=== PATIENT | male | born 1950 | race Caucasian/White ===

== ENCOUNTER 2020-05-08 12:02 | Emergency (ER) | payer BC, SELFPAY ==
--- NOTE | ~2020-05-08 | CT_ITS ---
EXAMINATION: CT lumbar spine wo con DATE: 05/08/2020 13:56 INDICATION: Low back pain. TECHNIQUE: Computed tomography (CT) of the lumbar spine was performed without intravenous contrast. A utomated exposure control and iterative reconstruction technique were employed. The dose-length produ ct was 760.42 mGy-cm. COMPARISON: CT abdomen and pelvis dated 12/28/2016 FINDINGS: Alignment is normal. Unchanged chronic mild vertebral body height loss at L5 and anteriorly at L4.. No fracture. Hemangioma in the left side of L4. Disc heights are normal. 1 mm nonobstructing left renal stone. Multiple diverticula are seen along the visualized portions of the descending and sigmoid colon without adjacent inflammatory change to suggest diverticulitis. Normal appendix. Reserv oir for a likely penile prosthesis in the anterior right pelvis. The following disc levels are specif ically discussed: T12-L1: The disc does not extend beyond the endplate margin. There is mild bilateral facet joint oste oarthritis. There is no neural foraminal stenosis. There is no central canal stenosis. L1-L2: Disc is mildly bulging. There is mild bilateral facet joint osteoarthritis. There is mild bila teral neural foraminal stenosis. There is no central canal stenosis. L2-L3: Disc is mildly bulging. There is mild right and moderate left facet joint osteoarthritis. Ther e is mild bilateral neural foraminal stenosis. There is mild central canal stenosis. L3-L4: Disc is bulging. There is mild right and moderate left facet joint osteoarthritis. There is mi ld bilateral neural foraminal stenosis. There is mild central canal stenosis. L4-L5: Disc is bulging. There is moderate right and mild left facet joint osteoarthritis. There is mo derate bilateral neural foraminal stenosis. There is moderate central canal stenosis. L5-S1: Disc is bulging. There is moderate right and mild left facet joint osteoarthritis. There is mi ld bilateral neural foraminal stenosis. There is no central canal stenosis. IMPRESSION: 1. Mild lumbar spondylosis. No acute osseous abnormality. Reviewed, dictated and finalized at location A. [place] [employer] SAL[employer] REPRESENTATIVE
--- NOTE | ~2020-05-08 | XR_ITS ---
EXAMINATION: XR ankle RT min 3V DATE: 05/08/2020 13:37 INDICATION: Posttraumatic right ankle pain, swelling and erythema. TECHNIQUE: Anteroposterior, oblique, mortise, and lateral views of the right ankle were obtained. COMPARISON: None. FINDINGS: Alignment is normal. No fracture. Joint spaces are well maintained. Chronic appearing irregular cont our to the neck of the talus which could represent old healed avulsion fracture or degenerative hyper trophic osteophyte. There are small heterotopic ossicles at the tips of the medial and lateral malleo li consistent with sequela of chronic medial and lateral ankle sprains. Prominent soft tissue swellin g about the lateral malleolus. No ankle joint effusion. IMPRESSION: 1. No acute osseous abnormality. Reviewed, dictated and finalized at location A. 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
[2020-05-08 12:04] VITALS: BP 150/94; PULSE 62; RESP 20; TEMP 36.6; O2SAT 98
--- NOTE | 2020-05-08 13:22 | ED.BACK ---
HPI - Back Pain/Injury General Chief Complaint: Back Pain/Injury Stated Complaint: BACK PAIN Time Seen by Provider: 05/08/20 13:10 Source: patient Mode of arrival: ambulatory Limitations: no limitations History of Present Illness HPI Narrative: This is a 69-year-old male that presents the emergency department for low back pain over the last couple of months. Reports the pain radiates down the right leg. Reports he has been seen by orthopedics for this and had steroid joint injection with some relief initially. He has also done physical therapy with little relief. He has been taking anti-inflammatories with little relief. Reports worsening pain this morning which prompted him to be seen. He does have a follow-up appointment with his orthopedic doctor in 2 days. Denies fever, saddle anesthesia, bowel/bladder incontinence, numbness, or weakness. Related Data Allergies Allergy/AdvReac Type Severity Reaction Status Date / Time vancomycin Allergy Mild Rash Verified 03/26/19 07:02 Review of Systems Review of Systems: Narrative: CONSTITUTIONAL: Denies fever SKIN: Denies rash MUSCULOSKELETAL: Reports back pain, joint pain, and myalgia. NEUROLOGIC: Denies numbness, or weakness. All systems reviewed & are unremarkable except as noted in HPI and below PMFSH Past Medical History Medical History (Updated 05/08/20 @ 15:10 by Kathy Avina PA-C) History of prostate cancer Family History Family History (Updated 09/19/16 @ 13:38 by DOCTOR UNKNOWN) Mother Cerebrovascular accident Father Family history of Alzheimer's disease Other Family history of malignant neoplasm Hypertension Social History Social History Smoking status: Never smoker Alcohol intake: current Gender identity (if verbalized by the patient): Male Exam Narrative: Exam Narrative: GENERAL: Well-appearing, well-nourished, and in no acute distress. HEAD: Normocephalic, atraumatic. EYES: EOMI. CHEST: Airway patent HEART: Regular rate. Normal peripheral pulses. BACK: No midline spinal tenderness EXTREMITIES: Normal range of motion. No edema. Strength equal in bilateral lower extremities (5/5). Normal patellar reflexes SKIN: Warm, dry, no rash. NEURO: No focal deficits. Alert and oriented x3. Normal gait PSYCH: Normal mood and affect Course Vital Signs Vital signs: Vital Signs Temperature 97.8 F 05/08/20 12:04 Pulse Rate 62 05/08/20 12:04 Respiratory Rate 20 05/08/20 12:04 Blood Pressure 150/94 H 05/08/20 12:04 Pulse Oximetry 98 05/08/20 12:04 Temperature 97.8 F 05/08/20 12:04 Pulse Rate 62 05/08/20 12:04 Respiratory Rate 20 05/08/20 12:04 Blood Pressure 150/94 H 05/08/20 12:04 Pulse Oximetry 98 05/08/20 12:04 MDM - Back Pain/Injury MDM Narrative Medical decision making narrative: Patient presents emergency department for low back pain over the last couple of months. Worsening recently. No known injury or trauma. He is afebrile and nontoxic-appearing. He is neurologically intact. CT scan of the lumbar spine shows mild lumbar spondylosis, no acute osseous abnormalities. Patient also reported a right ankle injury about a week ago. Right ankle x-ray is without acute findings. Patient instructed to rest, ice and take [id number] pain medication as needed. He will be given muscle relaxer as needed for pain and started on a steroid taper. He is to follow-up with his orthopedic doctor. He was given warnings to return to the ER Imaging Data Radiologist's impression: ITS Impressions Ankle X-Ray 05/08/20 14:08 IMPRESSION: 1. No acute osseous abnormality. Lumbar Spine CT 05/08/20 14:30 IMPRESSION: 1. Mild lumbar spondylosis. No acute osseous abnormality. Critical Care Time Critical Care Time Critical Care Time: No Discharge Plan Discharge Clinical Impression: Low back pain Qualifiers: Chronicity: chronic Back pain laterality: right Sciatica presence: wit
[2020-05-08] MEDS: diazePAM INJ (*CRX) 10 MG/2 ML SYRINGE 5 MG IM (13:35)
[2020-05-08] MEDS: ACETAMINOPHEN 500 MG TABLET 1000 MG PO (13:35)
== END 2020-05-08 15:25 | disposition home or self-care (01) ==
PROVIDERS: Emergency Provider Emergency Medicine; PCP Internal Medicine
DX: M54.41 Lumbago with sciatica, right side (principal); S93.401A Sprain of unspecified ligament of right ankle, initial encounter; Z85.46 Personal history of malignant neoplasm of prostate; M47.816 Spondylosis without myelopathy or radiculopathy, lumbar region; X58.XXXA Exposure to other specified factors, initial encounter
CPT/HCPCS: 72131; 73610; 96372; 99284; A9270; J3360

== ENCOUNTER 2020-11-16 15:03 | Emergency (ER) | payer BC, SELFPAY ==
--- NOTE | ~2020-11-16 | XR_ITS ---
EXAMINATION: XR nasal bones min 3V DATE: 11/16/2020 15:54 INDICATION: Nose laceration. TECHNIQUE: 3 views of the nasal bones were obtained. COMPARISON: Head CT 12/28/2016 FINDINGS: There is chronic rightward deviation of the nasal septum. There are comminuted fractures of the nasal bones. There is a skin defect at the nose. IMPRESSION: 1. Comminuted fractures of the nasal bones. Reviewed, dictated and finalized at location A.
[2020-11-16 15:24] VITALS: BP 128/81; PULSE 61; RESP 16; TEMP 37; O2SAT 97
[2020-11-16 16:19] VITALS: BP 147/95; PULSE 62; RESP 18; O2SAT 98
[2020-11-16] MEDS: TETANUS,DIPHTHERIA,AC PERTUSSIS ADULT (0.5 ML) BOOSTRIX IM (16:57)
[2020-11-16] MEDS: LIDOCAINE, EPINEPHRINE, TETRACAINE VISCOUS SOLN 3 ML TOPICAL (16:58)
--- NOTE | 2020-11-16 17:09 | ED.GENADULT ---
HPI - General Adult General Chief complaint: Wound/Laceration Stated complaint: nose lac Time Seen by Provider: 11/16/20 16:18 Source: patient and RN notes reviewed Mode of arrival: ambulatory Limitations: no limitations History of Present Illness HPI narrative: Patient is a 70-year-old male who presents to emergency department for evaluation of facial injuries patient was using a pole saw when the saw fell striking him over the nasal bridge sustaining a laceration patient notes mild aching pain worse with activity and touch patient notes that his tetanus is not up-to-date patient denies any syncope loss of consciousness patient on arrival to emergency department is not distressed patient has not taken anything for his symptoms Related Data Home Medications Medication Instructions Recorded Confirmed amlodipine 11/16/20 aspirin [Adult Aspirin EC Low 81 mg PO DAILY 11/16/20 Strength] levothyroxine [Synthroid] 11/16/20 pravastatin 11/16/20 temazepam mg 11/16/20 Allergies Allergy/AdvReac Type Severity Reaction Status Date / Time vancomycin Allergy Mild Rash Verified 11/16/20 17:05 Review of Systems Review of Systems: All systems reviewed & are unremarkable except as noted in HPI and below PMFSH Past Medical History Medical History (Updated 11/16/20 @ 18:48 by Justin Knapp PA-C) H/O Mohs micrographic surgery for skin cancer History of prostate cancer Family History Family History (Updated 09/19/16 @ 13:38 by DOCTOR UNKNOWN) Mother Cerebrovascular accident Father Family history of Alzheimer's disease Other Family history of malignant neoplasm Hypertension Social History Social History Smoking status: Never smoker Alcohol intake: current Gender identity (if verbalized by the patient): Male Exam Narrative: Exam Narrative: GENERAL: Well-appearing, well-nourished, and in no acute distress. HEAD: Normocephalic, irregular laceration across the nasal bridge EYES: PERRLA and EOMI. ENT: Nares clear, no rhinorrhea or epistaxis. Mucous membranes moist. Oropharynx without tonsillar hypertrophy exudate or other lesions. Bilateral TMs pearly ervin nonbulging CHEST: Clear to auscultation. No respiratory distress. No wheezes rales or rhonchi HEART: Regular rate and rhythm. No murmur heard. EXTREMITIES: Normal range of motion. No edema. No cervical spine tenderness to palpation SKIN: Warm, dry, no rash. NEURO: No focal deficits. Alert and oriented x3. Cranial nerves II through XII grossly intact PSYCH: Normal mood and affect. Course Course Emergency Course: Patient had closure of laceration and will follow with plastic surgery is aware of discussion recommendations of plastic surgery and agrees with this plan Consultations Consultation #1: Discussed case with plastic surgery Dr. Duran who will follow patient in clinic stable Date: 11/16/20 Time: 18:42 Vital Signs Vital signs: Vital Signs Temperature 98.6 F 11/16/20 15:24 Pulse Rate 61 11/16/20 15:24 Respiratory Rate 16 11/16/20 15:24 Blood Pressure 128/81 11/16/20 15:24 Pulse Oximetry 97 11/16/20 15:24 Temperature 98.6 F 11/16/20 15:24 Pulse Rate 62 11/16/20 16:19 Respiratory Rate 18 11/16/20 16:19 Blood Pressure 147/95 H 11/16/20 16:19 Pulse Oximetry 98 11/16/20 16:19 Procedures Laceration Laceration 1: Date: 11/16/20 Time: 18:45 Site: face Size (cm): 2 Description: irregular Depth: simple, single layer Local Anesthetic: lidocaine 1% Pre-repair: wound explored, irrigated and irrigated extensively ====== Skin Level ====== Skin layer closed with: nylon Size (cm): 6-0 Number of sutures: 13 ====== Subcutaneous Layer ====== ====== Muscle Layer ====== ====== Tendon Layer ====== Dressing: Patient had repair of laceration in the emerge
== END 2020-11-16 18:55 | disposition home or self-care (01) ==
PROVIDERS: Emergency Provider Emergency Medicine; PCP Internal Medicine
DX: S02.2XXB Fracture of nasal bones, initial encounter for open fracture (principal); Z23 Encounter for immunization; Z79.82 Long term (current) use of aspirin; Z85.46 Personal history of malignant neoplasm of prostate; W22.8XXA Striking against or struck by other objects, initial encounter
CPT/HCPCS: 12011; 70160; 90471; 90715; 99283

== ENCOUNTER 2021-03-20 10:09 | Emergency (ER) | payer MEDICARE, SELFPAY ==
--- NOTE | ~2021-03-20 | XR_ITS ---
EXAMINATION: XR foot RT min 3V EXAM DATE: 03/20/2021 10:32 INDICATION: stubbed rt 5th toe last night. Initial encounter. TECHNIQUE: Left foot dorsoplantar, lateral and oblique projections obtained and reviewed. There is n o prior study for comparison. FINDINGS: Left metatarsal bones unremarkable. There is acute closed posttraumatic oblique fracture through the 5th proximal phalangeal shaft. No significant angulation or displacement. There is overl laurita soft tissue swelling. No other suspicious findings. There is mild to moderate 1st metatarsophala ngeal joint primary osteoarthritis. Sequela from prior lateral malleolar avulsion injuries. IMPRESSION: Acute left proximal phalangeal shaft fracture. Reviewed, dictated and finalized at location B.
[2021-03-20 10:19] VITALS: BP 138/87; PULSE 56; RESP 16; TEMP 37.2; O2SAT 97
--- NOTE | 2021-03-20 10:47 | ED.LOWEXIN ---
HPI - Extremity Injury (Lower) General Chief Complaint: Extremity Injury, Lower Stated Complaint: Right foot Toe Pain Time Seen by Provider: 03/20/21 10:45 Source: patient, RN notes reviewed and old records reviewed Mode of arrival: ambulatory Limitations: no limitations History of Present Illness HPI Narrative: 70 year old male who presents to [facility] care with complaints of hitting his right 5th toe on dresser last night causing injury to his right 5th toe. Patient states pain with minimal swelling noted to right 5th toe, no acute bruising present. Patient states that he has been neville taping his right 5th toe to his 4th toe which helps the discomfort. Patient has strong pulses to his right foot with no tingling or numbness voiced. MD complaint: other (toe) Type of Injury: blunt Place: home Related Data Home Medications Medication Instructions Recorded Confirmed amlodipine 10 mg PO DAILY 11/16/20 03/20/21 aspirin [Adult Aspirin EC Low 81 mg PO DAILY 11/16/20 03/20/21 Strength] levothyroxine [Synthroid] 100 mcg PO DAILY 11/16/20 03/20/21 pravastatin 40 mg PO DAILY 11/16/20 03/20/21 temazepam 15 mg PO HS 11/16/20 03/20/21 gabapentin 300 mg PO BID 03/20/21 03/20/21 Allergies Allergy/AdvReac Type Severity Reaction Status Date / Time vancomycin Allergy Mild Rash Verified 03/20/21 10:40 Review of Systems Review of Systems: CONSTITUTIONAL: Denies fever, chills, or sweats. EYES: Denies visual changes, redness, or discharge. ENT: Denies rhinorrhea, congestion, sore throat, or otalgia. CARDIOVASCULAR: Denies chest pain, palpitations, or edema. RESPIRATORY: Denies cough or dyspnea. GASTROINTESTINAL: Denies abdominal pain, nausea, vomiting, or diarrhea. GENITOURINARY: Denies dysuria or hematuria. SKIN: Denies rash or itching. MUSCULOSKELETAL: Denies back pain,positive for pain to 5th toe right foot, or myalgia. NEUROLOGIC: Denies headache, numbness, or weakness. PSYCHIATRIC: Denies anxiety or depression. All systems reviewed & are unremarkable except as noted in HPI and below PMFSH Past Medical History Medical History (Updated 03/22/21 @ 15:33 by Gracie Sharma NP) Arthritis Eczema H/O Mohs micrographic surgery for skin cancer History of prostate cancer Hypertension Hypothyroidism Surgical History Surgical History (Updated 03/22/21 @ 15:32 by Gracie Sharma NP) H/O arthroscopic knee surgery H/O left inguinal hernia repair History of cataract surgery bilateral History of penile implant History of robot-assisted laparoscopic radical prostatectomy History of tonsillectomy Family History Family History Mother Cerebrovascular accident Father Family history of Alzheimer's disease Other Family history of malignant neoplasm Hypertension Social History Social History (Updated 03/22/21 @ 15:39 by Gracie Sharma NP) Smoking status: Never smoker Alcohol intake: current Substance use: never Living arrangements: with family Gender identity (if verbalized by the patient): Male Comments At time of signature, agree with nursing past medical, surgical, social and family history. There is no relevant family history pertinent to the presenting complaint Exam Narrative: GENERAL: Well-appearing, well-nourished, and in no acute distress. HEAD: Normocephalic, atraumatic. EYES: PERRLA and EOMI. ENT: Nares clear, no rhinorrhea or epistaxis. Mucous membranes moist.TM's normal with good light reflex, throat pink with no lesions or exudates, no tonsils present. NECK: Supple.no lymphadenopathy CHEST: Clear to auscultation. No respiratory distress.SAO2 97% on room air HEART: Regular rate and rhythm. No murmur heard. Normal peripheral pulses. ABDOMEN: Soft, nontender, nondistended, normal active bowel sounds. EXTREMITIES: Normal range of motion, with some pain and minimal swelling to right 5th toe from blunt injury no bruising noted,pain with any mov
== END 2021-03-20 11:20 | disposition home or self-care (01) ==
PROVIDERS: Emergency Provider Registered Nurse; PCP Internal Medicine
DX: S92.511A Displaced fracture of proximal phalanx of right lesser toe(s), initial encounter for closed fracture (principal); W22.03XA Walked into furniture, initial encounter; M19.90 Unspecified osteoarthritis, unspecified site; I10 Essential (primary) hypertension; E03.9 Hypothyroidism, unspecified; Z85.46 Personal history of malignant neoplasm of prostate; Z85.828 Personal history of other malignant neoplasm of skin
CPT/HCPCS: 73630; 99214; G0463

== ENCOUNTER 2021-06-17 10:41 | Outpatient (CLI) | payer MEDICARE, SELFPAY ==
--- NOTE | ~2021-06-17 | MR_ITS ---
EXAMINATION: MR knee RT wo con DATE: 06/17/2021 11:54 INDICATION: Right knee pain. TECHNIQUE: Magnetic resonance imaging (MRI) of the right knee was performed without intravenous contr ast. Sequences included axial PD-weighted FS FSE, coronal PD-weighted FSE and PD-weighted FS FSE, sag ittal PD-weighted FSE, and sagittal T2-weighted FS FSE. COMPARISON: None. FINDINGS: Medial compartment: There is a complex tear involving body and posterior horn of medial meniscus. There is partial-thickn ess cartilage loss of the tibial condyle, deep at the central articular surface where there is mild s ubchondral edema-like marrow signal intensity. There is full-thickness cartilage loss of femoral cond yle involving the central articular surface with intra-articular osteophyte and mild subchondral shaun a-like marrow signal intensity. There is deep partial thickness cartilage loss of femoral condyle inv olving the medial articular surface. Lateral compartment: Lateral meniscus is normal. There is cartilage surface irregularity of femoral condyle and tibial con dyle. Patellofemoral compartment: There is partial-thickness cartilage loss of patella, deep at the central articular surface. There is partial-thickness cartilage loss of trochlea, deep at the medial articular surface where there is mi ld subchondral edema-like marrow signal intensity. Marginal osteophytes are noted. Ligaments and tendons: The anterior and posterior cruciate ligaments are normal. There are changes of prior sprains of media l collateral ligament and fibular collateral ligament characterized by increased signal intensity pro ximally. There is mild patellar tendinopathy. Fluid: There is a small knee joint effusion. There is trace fluid in a Joiner's cyst. There is mild pes anser inus bursitis. There is mild prepatellar and superficial infrapatellar bursitis. IMPRESSION: 1. Severe chondrosis of medial compartment, moderate chondrosis of patellofemoral compartment, and mi ld chondrosis of lateral compartment. 2. Complex tear of medial meniscus. 3. Small knee joint effusion. Reviewed, dictated and finalized at location A. SCALER IMPRESSION: 1. Severe chondrosis of medial compartment, moderate chondrosis of patellofemor al compartment, and mild chondrosis of lateral compartment. 2. Complex tear of medial meniscus. 3. Small knee joint effusion.
== END 2021-06-17 10:42 | disposition home or self-care (01) ==
LOC: ANHIMG 10:45
PROVIDERS: PCP Internal Medicine
DX: M25.461 Effusion, right knee (principal); S83.231A Complex tear of medial meniscus, current injury, right knee, initial encounter; X58.XXXA Exposure to other specified factors, initial encounter
CPT/HCPCS: 73721

== ENCOUNTER 2021-09-23 16:37 | Emergency (ER) | payer MEDICARE, SELFPAY ==
[2021-09-23 16:52] VITALS: BP 158/85; PULSE 60; RESP 16; O2SAT 96
--- NOTE | 2021-09-23 17:38 | ED.EYEPROB ---
HPI - Eye Problem General Chief complaint: Eye Problems Stated complaint: FB right eye Time Seen by Provider: 09/23/21 17:22 History of Present Illness HPI Narrative: 71-year-old male here for evaluation of right eye pain for 2 hours. Patient states that he was shaking out a tarp in his yard and believes he got a piece of dust in his eye. He has report redness and irritation ever since the incident, also has a foreign body sensation. He has attempted to irrigate the eye with saline solution without relief. He denies any blurry vision, headaches, nausea, vomiting. He has a history of LASEK procedure in 2019, has follow up with his eye doctor next week. Related Data Home Medications Medication Instructions Recorded Confirmed amlodipine 10 mg PO DAILY 11/16/20 03/20/21 aspirin [Adult Aspirin EC Low 81 mg PO DAILY 11/16/20 03/20/21 Strength] levothyroxine [Synthroid] 100 mcg PO DAILY 11/16/20 03/20/21 pravastatin 40 mg PO DAILY 11/16/20 03/20/21 temazepam 15 mg PO HS 11/16/20 03/20/21 gabapentin 300 mg PO BID 03/20/21 03/20/21 Allergies Allergy/AdvReac Type Severity Reaction Status Date / Time vancomycin Allergy Mild Rash Verified 03/20/21 10:40 Review of Systems Review of Systems: Gen: Denies fevers or chills Eyes: Reports right eye pain. Denies visual change ENT: Denies congestion Respiratory: Denies shortness of breath or cough CV: Denies chest pain or palpitations GI: Denies abdominal pain nausea, emesis or diarrhea denies burning, urgency, frequency or hematuria Musculoskeletal: Denies back pain or muscle pain Neuro: Denies numbness, tingling, weakness or focal weakness Skin: Denies rash Except as documented, all other systems reviewed and negative All systems reviewed & are unremarkable except as noted in HPI and below PMFSH Past Medical History Medical History Arthritis Eczema H/O Mohs micrographic surgery for skin cancer History of prostate cancer Hypertension Hypothyroidism Surgical History Surgical History H/O arthroscopic knee surgery H/O left inguinal hernia repair History of cataract surgery bilateral History of penile implant History of robot-assisted laparoscopic radical prostatectomy History of tonsillectomy Family History Family History Mother Cerebrovascular accident Father Family history of Alzheimer's disease Other Family history of malignant neoplasm Hypertension Social History Social History (Updated 03/22/21 @ 15:39 by Gracie Sharma NP) Smoking status: Never smoker Alcohol intake: current Substance use: never Gender identity (if verbalized by the patient): Male Exam Narrative: Gen: Alert, oriented male in no acute distress. Eyes: Right conjunctiva is diffusely injected. No foreign body visualized on exam; eyelid everted and swept. Fluorescein exam without discrete area of uptake. Pupils are equal round and reactive to light and accommodation. EOMI, no icterus. Pulm: Respirations even and unlabored, symmetric thorax expansion, no audible stridor or visible cyanosis GI: No distension, no voluntary/involuntary guarding Neuro: AOx4, moves all extremities without apparent difficulty or weakness, follows commands Skin: No jaundice, no visible bruising, rashes, lesions or wounds on exposed skin Psych: Normal mood/affect, insight/judgement good, adequate fund of knowledge, recent/remote memory intact Course Vital Signs Vital signs: Vital Signs Pulse Rate 60 09/23/21 16:52 Respiratory Rate 16 09/23/21 16:52 Blood Pressure 158/85 H 09/23/21 16:52 Pulse Oximetry 96 09/23/21 16:52 Pulse Rate 60 09/23/21 16:52 Respiratory Rate 16 09/23/21 16:52 Blood Pressure 158/85 H 09/23/21 16:52 Pulse Oximetry 96 09/23/21 16:52 MDM - Eye Problem MDM Narr
[2021-09-23] MEDS: TETRACAINE HCL 0.5% OPHTH SOLN 4 ML BTL 1 DROP RIGHT EYE (17:43)
== END 2021-09-23 18:24 | disposition home or self-care (01) ==
PROVIDERS: Emergency Provider Emergency Medicine; PCP Internal Medicine
DX: H57.11 Ocular pain, right eye (principal); I10 Essential (primary) hypertension; E03.9 Hypothyroidism, unspecified; M19.90 Unspecified osteoarthritis, unspecified site; Z79.82 Long term (current) use of aspirin; Z85.46 Personal history of malignant neoplasm of prostate; Z85.828 Personal history of other malignant neoplasm of skin; Z98.42 Cataract extraction status, left eye; Z98.41 Cataract extraction status, right eye; Z90.79 Acquired absence of other genital organ(s)
CPT/HCPCS: 99283

== ENCOUNTER 2021-12-14 12:24 | Emergency (ER) | payer MEDICARE, SELFPAY ==
--- NOTE | ~2021-12-14 | XR_ITS ---
EXAMINATION: XR forearm LT 2V DATE: 12/14/2021 14:08 INDICATION: Left forearm laceration. TECHNIQUE: 2 views of left forearm were obtained. COMPARISON: None. FINDINGS: Bone alignment is normal. No fracture. 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 No elbow joint effusion. IMPRESSION: 1. No fracture or radiopaque foreign body. Reviewed, dictated and finalized at location A.
[2021-12-14 13:15] VITALS: BP 148/85; PULSE 57; RESP 16; TEMP 36.5; O2SAT 96
--- NOTE | 2021-12-14 13:55 | ED.WOUNDLAC ---
HPI - Wound/Laceration General Chief Complaint: Wound/Laceration <Nani Vaca MD - Last Filed: 12/14/21 19:26> Stated Complaint: laceration <Nani Vaca MD - Last Filed: 12/14/21 19:26> Time Seen by Provider: 12/14/21 13:23 <Nani Vaca MD - Last Filed: 12/14/21 19:26> Source: patient and RN notes reviewed <Nani Vaca MD - Last Filed: 12/14/21 19:26> Mode of arrival: ambulatory <Nani Vaca MD - Last Filed: 12/14/21 19:26> Limitations: no limitations <Nani Vaca MD - Last Filed: 12/14/21 19:26> History of Present Illness HPI narrative: This is a 71 year old male who presents for evaluation of left forearm laceration. Patient states left fore arm was cut accidentally with a saw. He states it is not a power saw. Bleeding is controlled. He reports minimal pain. He wants to know if he needs stitches. He denies limp numbness or tingling. <Nani Vaca MD - Last Filed: 12/14/21 19:26> Onset (ago): minute(s) <Nani Vaca MD - Last Filed: 12/14/21 19:26> Extremity Location: Left: forearm <Nani Vaca MD - Last Filed: 12/14/21 19:26> Place: home <Nani Vaca MD - Last Filed: 12/14/21 19:26> Context: accidental <Nani Vaca MD - Last Filed: 12/14/21 19:26> Associated symptoms: none <Nani Vaca MD - Last Filed: 12/14/21 19:26> Related Data Home Medications: Home Medications Medication Instructions Recorded Confirmed amlodipine 10 mg tablet 10 mg PO DAILY 11/16/20 03/20/21 aspirin 81 mg tablet,delayed 81 mg PO DAILY 11/16/20 03/20/21 release levothyroxine 100 mcg tablet 100 mcg PO DAILY 11/16/20 03/20/21 (Synthroid) pravastatin 40 mg tablet 40 mg PO DAILY 11/16/20 03/20/21 temazepam 15 mg capsule 15 mg PO HS 11/16/20 03/20/21 gabapentin 300 mg capsule 300 mg PO BID 03/20/21 03/20/21 <Nani Vaca MD - Last Filed: 12/14/21 19:26> Allergies/Adverse Reactions: Allergies Allergy/AdvReac Type Severity Reaction Status Date / Time vancomycin Allergy Mild Rash Verified 12/14/21 13:17 <Nani Vaca MD - Last Filed: 12/14/21 19:26> Review of Systems Constitutional: Constitutional: Denies chills and Denies fatigue <Nani Vaca MD - Last Filed: 12/14/21 19:26> Eyes: Eyes: Denies change in vision <Nani Vaca MD - Last Filed: 12/14/21 19:26> Gastrointestinal: Gastrointestinal: Denies nausea and Denies vomiting <Nani Vaca MD - Last Filed: 12/14/21 19:26> [facility] Past Medical History Medical History: Medical History Arthritis Eczema H/O Mohs micrographic surgery for skin cancer History of prostate cancer Hypertension Hypothyroidism <Nani Vaca MD - Last Filed: 12/14/21 19:26> Surgical History Surgical History: Surgical History H/O arthroscopic knee surgery H/O left inguinal hernia repair History of cataract surgery bilateral History of penile implant History of robot-assisted laparoscopic radical prostatectomy History of tonsillectomy <Nani Vaca MD - Last Filed: 12/14/21 19:26> Family History Family History: Family History Mother Cerebrovascular accident Father Family history of Alzheimer's disease Other Family history of malignant neoplasm Hypertension <Nani Vaca MD - Last Filed: 12/14/21 19:26> Social History Social History: Social History (Updated 03/22/21 @ 15:39 by Gracie Sharma NP) Smoking status: Never smoker Alcohol intake: current Substance use: never Gender identity (if verbalized by the patient): Male <Nani Vaca MD - Last Filed: 12/14/21 19:26> Exam Const: General: no acute distress and alert <Nani Vaca MD - Last Filed: 12/14/21 19:26> [facility]
[2021-12-14] MEDS: LIDO 1%/EPINEPHRINE 1:100,000 20 ML VIAL 5 ML INFILTRATE (14:14)
== END 2021-12-14 15:16 | disposition home or self-care (01) ==
PROVIDERS: Emergency Provider General Practice; PCP Internal Medicine
DX: S51.812A Laceration without foreign body of left forearm, initial encounter (principal); I10 Essential (primary) hypertension; E03.9 Hypothyroidism, unspecified; M19.90 Unspecified osteoarthritis, unspecified site; Z85.46 Personal history of malignant neoplasm of prostate; Z85.828 Personal history of other malignant neoplasm of skin; Z98.42 Cataract extraction status, left eye; Z98.41 Cataract extraction status, right eye; Z79.82 Long term (current) use of aspirin; W27.0XXA Contact with workbench tool, initial encounter
CPT/HCPCS: 12001; 73090; 99283

== ENCOUNTER 2023-09-13 12:02 | Emergency (ER) | payer MEDICARE, SELFPAY ==
[2023-09-13 12:05] VITALS: BP 155/96; PULSE 55; RESP 16; TEMP 36.3; O2SAT 96
--- NOTE | 2023-09-13 12:59 | ED_ITS ---
HPI - Wound/Laceration General Chief Complaint: Wound/Laceration Stated Complaint: finger lac Time Seen by Provider: 09/13/23 12:12 Source: patient Mode of arrival: ambulatory Limitations: no limitations History of Present Illness HPI narrative: 72-year-old care with the complaints of laceration to his right index finger sustained prior coming to the ER. Patient states that he accidentally hit himself against hard surface. Onset (ago): hour(s) (1) Location: other (right index finger) Place: home Patient tetanus UTD: No Context: accidental Associated symptoms: none Related Data Home Medications Medication Instructions Recorded Confirmed amlodipine 10 mg tablet 10 mg PO DAILY 11/16/20 03/20/21 aspirin 81 mg tablet,delayed 81 mg PO DAILY 11/16/20 03/20/21 release levothyroxine 100 mcg tablet 100 mcg PO DAILY 11/16/20 03/20/21 (Synthroid) pravastatin 40 mg tablet 40 mg PO DAILY 11/16/20 03/20/21 temazepam 15 mg capsule 15 mg PO HS 11/16/20 03/20/21 gabapentin 300 mg capsule 300 mg PO BID 03/20/21 03/20/21 Allergies Allergy/AdvReac Type Severity Reaction Status Date / Time vancomycin Allergy Mild Rash Verified 12/14/21 13:17 Review of Systems Review of Systems: All systems reviewed & are unremarkable except as noted in HPI and below Constitutional: Constitutional: Reports no additional constitutional complaints Eyes: Eyes: Reports no additional eye complaints ENT: Reports system reviewed and no additional complaints, except as documented Cardiovascular: Cardiovascular: Reports no additional cardiovascular complaints Respiratory: Respiratory: Reports no additional respiratory complaints Musculoskeletal: Musculoskeletal: Reports as per HPI [facility] Past Medical History Medical History Arthritis Eczema H/O Mohs micrographic surgery for skin cancer History of prostate cancer Hypertension Hypothyroidism Surgical History Surgical History H/O arthroscopic knee surgery H/O left inguinal hernia repair History of cataract surgery bilateral History of penile implant History of robot-assisted laparoscopic radical prostatectomy History of tonsillectomy Family History Family History Mother Cerebrovascular accident Father Family history of Alzheimer's disease Other Family history of malignant neoplasm Hypertension Social History Social History (Updated 03/22/21 @ 15:39 by Gracie Sharma NP) Smoking status: Never smoker Alcohol intake: current Substance use: never Living arrangements: with family Gender identity (if verbalized by the patient): Male Exam Narrative: GENERAL: Well-appearing, well-nourished, and in no acute distress. HEAD: Normocephalic, atraumatic. EYES: PERRLA and EOMI. ENT: Nares clear, no rhinorrhea or epistaxis. Mucous membranes moist. NECK: Supple. CHEST: Clear to auscultation. No respiratory distress. HEART: Regular rate and rhythm. No murmur heard. Normal peripheral pulses. EXTREMITIES: Normal range of motion. No edema. To have cm laceration on the right index PIP joint with active bleed SKIN: Warm, dry, no rash. NEURO: No focal deficits. Alert and oriented x3. PSYCH: Normal mood and affect. Course Vital Signs Vital signs: Vital Signs Temperature 36.3 C L 09/13/23 12:05 Pulse Rate 55 L 09/13/23 12:05 Respiratory Rate 16 09/13/23 12:05 Blood Pressure 155/96 H 09/13/23 12:05 Pulse Oximetry 96 09/13/23 12:05 Oxygen Delivery Room Air 09/13/23 12:05 Temperature 36.3 C L 09/13/23 12:05 Pulse Rate 55 L 09/13/23 12:05 Respiratory Rate 16 09/13/23 12:05 Blood Pressure 155/96 H 09/13/23 12:05 Pulse Oximetry 96 09/13/23 12:05 Oxygen Delivery Room Air 09/13/23 12:05 Procedures Laceration Laceration 1: Date: 09/13/23 Site: other (Right index finger PIP joint) Side (If applicable): right Size (cm): 2.5 Description: irregular Depth: simple, single layer Local Anesthetic: lidocaine 1% Amount of anesthesia used (mL): 5 ====== Skin Level ====== Skin layer closed with: nylon Size (cm): 5-0 Number of sutures: 6 Technique: running ====== Subcutaneous Layer ====== ====== Muscle Layer ====== ====== Tendon Layer ====== Discharge Plan Discharge Clinical Impression: Laceration Patient Disposition: Home, Self-Care Condition: Stable Instructions: Laceration (ED) Additional Instructions: Keep the wound clean , sutures off 7 days , take anitbotic as prescribed. Prescriptions: New cephalexin 500 mg capsule 500 mg PO Q8H 7 Days Qty: 21 0RF No Action gabapentin 300 mg capsule 300 mg PO BID pravastatin 40 mg tablet 40 mg PO DAILY aspirin [Adult Aspirin EC Low Strength] 81 mg Tablet,Delayed Release (Dr/Ec) 81 mg PO DAILY levothyroxine [Synthroid] 100 mcg tablet 100 mcg PO DAILY temazepam 15 mg capsule 15 mg PO HS amlodipine 10 mg tablet 10 mg PO DAILY Follow-up/Referrals: Delroy,Ehsan Neville MD [Primary Care Provider] - Time of Disposition: 13:10
[2023-09-13] MEDS: TETANUS,DIPHTHERIA,AC PERTUSSIS ADULT (0.5 ML) BOOSTRIX IM (13:15)
[2023-09-13 13:17] VITALS: BP 138/78; PULSE 58; RESP 16; TEMP 36.6; O2SAT 100
== END 2023-09-13 13:19 | disposition home or self-care (01) ==
LOC: ANHED 13:16
PROVIDERS: Emergency Provider Family Medicine; PCP Internal Medicine
DX: S61.210A Laceration without foreign body of right index finger without damage to nail, initial encounter (principal); Z23 Encounter for immunization; I10 Essential (primary) hypertension; E03.9 Hypothyroidism, unspecified; M19.90 Unspecified osteoarthritis, unspecified site; Z85.46 Personal history of malignant neoplasm of prostate; Z85.828 Personal history of other malignant neoplasm of skin; Z90.79 Acquired absence of other genital organ(s); Z98.42 Cataract extraction status, left eye; Z98.41 Cataract extraction status, right eye; W22.8XXA Striking against or struck by other objects, initial encounter
CPT/HCPCS: 12001; 90471; 90715; 99283